=== PATIENT | male | born 1965 | race Two or more races ===

== ENCOUNTER 2021-06-28 14:33 | Inpatient (IN) | payer MEDICAID, OTHER ==
[~2021-06-28] VITALS: Ht 182.9 cm; Wt 136.4 kg
[2021-06-28] MEDS ORDERED: cefTRIAXone 1GM/50ML D5W 50 ML IV ONE (15:30)
[2021-06-28] MEDS ORDERED: AZITHROMYCIN 500MG/ 250ML 250 ML IV ONE (16:00)
[2021-06-28] MEDS ORDERED: DexAMETHasone SOD PHOS 10MG/1ML VIAL INJ IV ONE (16:00)
[2021-06-28 16:20] LABS: Red Cell Distribution Width 14.6 % (11.8-14.3); White Blood Cell 2.8 10^3/uL (4.4-10.8)
[2021-06-28 16:24] LABS: Basophils # (auto) 0 10 ^3/uL (0-0.2); Basophils % (auto) 0.2 % (0.0-2.0); Eosinophils # (auto) 0 10 ^3/uL (0-0.8); Eosinophils % (auto) 0.4 % (0.0-7.0); Hematocrit 45.8 % (41.0-53.0); Hemoglobin 15.5 g/dL (13.5-17.5); Lymphocytes # (auto) 0.4 10 ^3/uL (0.4-5.4); Lymphocytes % (auto) 14.5 % (10.0-50.0); Mean Corpuscular Hgb Conc. 33.9 g/dL (32.0-36.0); Mean Corpuscular Volume 97.3 fL (80.0-100.0); Monocytes # (auto) 0.4 10 ^3/uL (0-1.3); Monocytes % (auto) 15.2 % (0.0-12.0); Neutrophils # (auto) 1.9 10 ^3/uL (1.6-8.6); Neutrophils % (auto) 69.7 % (37.0-80.0); Nucleated Red Blood Cells % 0.2 %; Red Blood Cells 4.71 10^6/uL (4.5-5.90)
[2021-06-28 17:02] LABS: Calcium 8.1 mg/dL (8.5-10.1); Magnesium 2.6 mg/dL (1.6-2.6)
[2021-06-28 17:09] LABS: BUN/Creatinine Ratio 14.4; Total Protein 7.5 g/dL (6.4-8.2)
[2021-06-28] MEDS ORDERED: IOHEXOL 350 MG/ML 100ML IJ ONE (17:52)
[2021-06-28] MEDS ORDERED: REMDESIVIR PER PHARMACY 0 ML IV SCH (18:30)
[2021-06-28] MEDS ORDERED: ACETAMINOPHEN 500 MG TAB PO PRN (18:30)
[2021-06-28] MEDS ORDERED: MORPHINE SULFATE INJECTION 2 MG/ML SYRG IV PRN (18:30)
[2021-06-28] MEDS ORDERED: NITROGLYCERIN 0.4 MG SL TAB SL PRN (18:30)
[2021-06-28 20:30] VITALS: BP 126/82
[2021-06-28] MEDS ORDERED: REMDESIVIR 200 MG in NS 210ml LOADING DOSE ADULT IV ONE (21:00)
[2021-06-28 21:30] VITALS: BP 126/82
[2021-06-28] MEDS: BUDESONIDE (INHALATION) 180 MCG IH IN SCH (21:46)
[2021-06-28] MEDS ORDERED: ENOXAPARIN SOD 40 MG/0.4 ML SYRINGE SC SCH (22:00)
[2021-06-28] MEDS: FAMOTIDINE 20 MG TAB PO SCH (22:41)
[2021-06-29] MEDS: DOXYCYCLINE 100MG/250ML 250 ML IV SCH ×3 (01:03→21:46)
[2021-06-29] MEDS ORDERED: dilTIAZem 25 MG/5 ML VIAL IV ONE (02:00)
[2021-06-29] MEDS ORDERED: diphenhdrAMINE HCL 50 MG/1 ML VL IV ONE (02:00)
[2021-06-29 07:08] LABS: Urine Bacteria NONE SEEN /hpf (None Seen); Urine Blood Negative /uL (Negative); Urine Mucus FEW (None Seen); Urine Specific Gravity 1.048 (1.001-1.035); Urine WBC 1 /hpf (0 - 3)
[2021-06-29 07:20] LABS: Hemoglobin 15.5 g/dL (13.5-17.5)
[2021-06-29 07:21] LABS: Amphetamine Screen, Urine NEGATIVE (NEGATIVE); Barbiturate Scree,Urine NEGATIVE (NEGATIVE); Benzodiazephine Screen, Urine NEGATIVE (NEGATIVE); Cannabinoid Screen, Urine NEGATIVE (NEGATIVE); Cocaine Screen, Urine NEGATIVE (NEGATIVE); Opiate Scree,Urine NEGATIVE (NEGATIVE); Phencyclidine Screen, Urine NEGATIVE (NEGATIVE)
[2021-06-29 07:22] LABS: Hematocrit 45.2 % (41.0-53.0); Mean Corpuscular Hemoglobin 33.4 pg (28.0-32.0); Mean Corpuscular Hgb Conc. 34.2 g/dL (32.0-36.0); Mean Corpuscular Volume 97.5 fL (80.0-100.0); Red Blood Cells 4.64 10^6/uL (4.5-5.90); Red Cell Distribution Width 14.5 % (11.8-14.3)
[2021-06-29 07:25] LABS: White Blood Cell 1.8 10^3/uL (4.4-10.8)
[2021-06-29 07:26] LABS: Basophils % (manual) 0 (0.0-2.0); Blast Cells 0; Eosinophils % (manual) 0 (0-7); Metamyelocytes % 0; Myelocytes % 0; Promyelocytes % 0; Reactive Lymphocytes 0
[2021-06-29 08:33] LABS: Band Neutrophils % (manual) 5; Lymphocytes % (manual) 21 (10.0-50.0); Monocytes % (manual) 8 (0-12)
[2021-06-29] MEDS: FAMOTIDINE 20 MG TAB PO SCH ×2 (09:52→21:46)
[2021-06-29] MEDS: DexAMETHasone SOD PHOS 10MG/1ML VIAL INJ IV SCH (09:52)
[2021-06-29] MEDS: ASCORBIC ACID 1,000 MG TAB PO SCH (09:53)
[2021-06-29] MEDS: CHOLECALCIFEROL (VITD3) 2,000 UNIT CAP/TAB PO SCH (09:53)
[2021-06-29] MEDS: BUDESONIDE (INHALATION) 180 MCG IH IN SCH ×2 (10:00→22:00)
[2021-06-29] MEDS: ZINC SULFATE 220mg CAP or TAB PO SCH (10:03)
[2021-06-29] MEDS: IVERMECTIN 3 MG TAB PO SCH (10:03)
[2021-06-29 10:35] LABS: Potassium 4.3 mmol/L (3.5-5.1)
[2021-06-29 10:42] LABS: Albumin 2.9 g/dL (3.4-5.0); BUN/Creatinine Ratio 16.5; Bilirubin, Total 1.2 mg/dL (0.2-1.0); Calcium 7.9 mg/dL (8.5-10.1); Total Protein 6.8 g/dL (6.4-8.2)
[2021-06-29 13:00] VITALS: BP 134/77
[2021-06-29] MEDS ORDERED: REMDESIVIR 100mg 100 MG in SODIUM CHL 0.9% 230 ML IV SCH (15:00)
[2021-06-29 22:00] VITALS: BP 128/75
[2021-06-29] MEDS: ALBUTEROL SULF HFA 90MCG INH 200DOSE IN PRN (22:53)
[2021-06-30 05:00] VITALS: BP 122/73
[2021-06-30 05:56] LABS: Basophils # (auto) 0 10 ^3/uL (0-0.2); Eosinophils # (auto) 0 10 ^3/uL (0-0.8); Hemoglobin 15.5 g/dL (13.5-17.5); Lymphocytes # (auto) 0.3 10 ^3/uL (0.4-5.4); Mean Corpuscular Hemoglobin 33.5 pg (28.0-32.0)
[2021-06-30 05:59] LABS: Basophils % (auto) 0.4 % (0.0-2.0); Lymphocytes % (auto) 7.4 % (10.0-50.0); Mean Corpuscular Hgb Conc. 34.3 g/dL (32.0-36.0); Mean Corpuscular Volume 97.7 fL (80.0-100.0); Monocytes # (auto) 0.5 10 ^3/uL (0-1.3); Monocytes % (auto) 11.6 % (0.0-12.0); Neutrophils # (auto) 3.3 10 ^3/uL (1.6-8.6); Neutrophils % (auto) 80.6 % (37.0-80.0); Nucleated Red Blood Cells % 0.1 %; Red Blood Cells 4.61 10^6/uL (4.5-5.90); Red Cell Distribution Width 14.6 % (11.8-14.3)
[2021-06-30 06:11] LABS: INR 1.19 (0.9-1.15)
[2021-06-30] MEDS: BUDESONIDE (INHALATION) 180 MCG IH IN SCH (07:00)
[2021-06-30 09:00] VITALS: BP 107/61
[2021-06-30] MEDS: DOXYCYCLINE 100MG/250ML 250 ML IV SCH ×2 (09:44→21:06)
[2021-06-30] MEDS: ZINC SULFATE 220mg CAP or TAB PO SCH (09:44)
[2021-06-30] MEDS: DexAMETHasone SOD PHOS 10MG/1ML VIAL INJ IV SCH (09:44)
[2021-06-30] MEDS: FAMOTIDINE 20 MG TAB PO SCH ×2 (09:44→21:06)
[2021-06-30] MEDS: CHOLECALCIFEROL (VITD3) 2,000 UNIT CAP/TAB PO SCH (09:45)
[2021-06-30] MEDS: ASCORBIC ACID 1,000 MG TAB PO SCH (09:45)
[2021-06-30] MEDS: IVERMECTIN 3 MG TAB PO SCH (09:45)
[2021-06-30 13:00] VITALS: BP 136/78
[2021-06-30 17:00] VITALS: BP 114/67
[2021-06-30 22:00] VITALS: BP 124/76
[2021-07-01 05:00] VITALS: BP 125/77
[2021-07-01] MEDS: ALBUTEROL SULF HFA 90MCG INH 200DOSE IN PRN ×2 (06:02→21:35)
[2021-07-01] MEDS: BUDESONIDE (INHALATION) 180 MCG IH IN SCH ×2 (06:03→21:35)
[2021-07-01] MEDS ORDERED: PNEUMOCOCCAL VACC POLYS 25 MCG/0.5 ML VIAL IM ONE (07:45)
[2021-07-01] MEDS ORDERED: INFLUENZA QUAD 2021-2022 0.5 ML SYRG IM ONE (07:45)
[2021-07-01 09:00] VITALS: BP 109/73
[2021-07-01] MEDS: DexAMETHasone SOD PHOS 10MG/1ML VIAL INJ IV SCH (09:09)
[2021-07-01] MEDS: ZINC SULFATE 220mg CAP or TAB PO SCH (09:10)
[2021-07-01] MEDS: DOXYCYCLINE 100MG/250ML 250 ML IV SCH (09:10)
[2021-07-01] MEDS: CHOLECALCIFEROL (VITD3) 2,000 UNIT CAP/TAB PO SCH (09:11)
[2021-07-01] MEDS: FAMOTIDINE 20 MG TAB PO SCH ×2 (09:11→23:26)
[2021-07-01] MEDS: ASCORBIC ACID 1,000 MG TAB PO SCH (09:11)
[2021-07-01] MEDS: IVERMECTIN 3 MG TAB PO SCH (09:11)
[2021-07-01 10:17] LABS: Hepatitis B Surface Antibody Negative (Negative)
[2021-07-01 10:52] LABS: Hepatitis A Total Antibody Negative (Negative)
[2021-07-01] MEDS ORDERED: CHOL1TAB42 PO (11:05)
[2021-07-01] MEDS ORDERED: ALBU108A5 IN (11:05)
[2021-07-01] MEDS ORDERED: DEX4T PO (11:05)
[2021-07-01] MEDS ORDERED: FAMO20TA10 PO (11:05)
[2021-07-01] MEDS ORDERED: BUDE20SU (11:05)
[2021-07-01] MEDS ORDERED: AZIT500T66 PO (11:05)
[2021-07-01 13:00] VITALS: BP 149/86
[2021-07-01 13:13] LABS: Hepatitis C Antibody Negative (Negative)
[2021-07-01 17:00] VITALS: BP 121/76
[2021-07-01 22:35] VITALS: BP 116/71
[2021-07-02] MEDS: DOXYCYCLINE 100MG/250ML 250 ML IV SCH ×2 (00:15→10:32)
[2021-07-02 05:02] VITALS: BP 124/53
[2021-07-02] MEDS: ALBUTEROL SULF HFA 90MCG INH 200DOSE IN PRN (05:47)
[2021-07-02] MEDS: BUDESONIDE (INHALATION) 180 MCG IH IN SCH (05:47)
[2021-07-02 07:08] LABS: Basophils # (auto) 0 10 ^3/uL (0-0.2); Eosinophils # (auto) 0 10 ^3/uL (0-0.8); Eosinophils % (auto) 0.2 % (0.0-7.0); Hematocrit 41.8 % (41.0-53.0); Hemoglobin 14.3 g/dL (13.5-17.5); Lymphocytes # (auto) 0.4 10 ^3/uL (0.4-5.4); Mean Corpuscular Hemoglobin 33.6 pg (28.0-32.0); Mean Corpuscular Hgb Conc. 34.2 g/dL (32.0-36.0); Mean Corpuscular Volume 98.3 fL (80.0-100.0); Monocytes # (auto) 0.3 10 ^3/uL (0-1.3); Monocytes % (auto) 9.4 % (0.0-12.0); Neutrophils # (auto) 2.9 10 ^3/uL (1.6-8.6); Neutrophils % (auto) 80.4 % (37.0-80.0); Nucleated Red Blood Cells % 0.2 %; Red Blood Cells 4.26 10^6/uL (4.5-5.90); Red Cell Distribution Width 14.3 % (11.8-14.3); White Blood Cell 3.6 10^3/uL (4.4-10.8)
[2021-07-02 07:29] LABS: Potassium 4.3 mmol/L (3.5-5.1)
[2021-07-02 07:36] LABS: Albumin 2.5 g/dL (3.4-5.0); BUN/Creatinine Ratio 26.7; Bilirubin, Total 0.8 mg/dL (0.2-1.0); Calcium 7.7 mg/dL (8.5-10.1)
[2021-07-02 09:00] VITALS: BP 120/63
[2021-07-02] MEDS: DexAMETHasone SOD PHOS 10MG/1ML VIAL INJ IV SCH (10:32)
[2021-07-02] MEDS: ZINC SULFATE 220mg CAP or TAB PO SCH (10:32)
[2021-07-02] MEDS: IVERMECTIN 3 MG TAB PO SCH (10:33)
[2021-07-02] MEDS: ASCORBIC ACID 1,000 MG TAB PO SCH (10:33)
[2021-07-02] MEDS: CHOLECALCIFEROL (VITD3) 2,000 UNIT CAP/TAB PO SCH (10:33)
[2021-07-02] MEDS: FAMOTIDINE 20 MG TAB PO SCH (10:33)
[2021-07-02 12:26] VITALS: BP 120/63
[2021-07-02 13:06] VITALS: BP 109/59
== END 2021-07-02 13:50 | disposition home or self-care (01) | DRG 137 ==
LOC: ER 14:33 → TELE 18:24 → TELE-EAST 20:55
PROVIDERS: ADMIT Hospitalist; ATTEND Hospitalist
PROC: XW033E5 Introduction of Remdesivir Anti-infective into Peripheral Vein, Percutaneous Approach, New Technology Group 5 (ICD-10-PCS; principal; 2021-06-28)
DX: U07.1 COVID-19 (principal); J96.01 Acute respiratory failure with hypoxia; J12.82 Pneumonia due to coronavirus disease 2019; D69.6 Thrombocytopenia, unspecified; R65.10 Systemic inflammatory response syndrome (SIRS) of non-infectious origin without acute organ dysfunction; I11.9 Hypertensive heart disease without heart failure; K74.60 Unspecified cirrhosis of liver; J45.909 Unspecified asthma, uncomplicated; J98.11 Atelectasis; E66.9 Obesity, unspecified; E11.9 Type 2 diabetes mellitus without complications; R00.0 Tachycardia, unspecified; Z53.29 Procedure and treatment not carried out because of patient's decision for other reasons; Z68.41 Body mass index [BMI] 40.0-44.9, adult; Z82.49 Family history of ischemic heart disease and other diseases of the circulatory system; Z79.4 Long term (current) use of insulin; Z88.0 Allergy status to penicillin; Z23 Encounter for immunization
CPT/HCPCS: 36415; 36600; 71045; 71275; 80053; 80307; 81001; 82105; 82306; 82728; 82805; 83036; 83615; 83735; 83880; 84443; 84484; 85007; 85025; 85027; 85379; 85610; 86141; 86704; 86706; 86708; 86803; 87340; 87426; 87804; 93005; 94640; 96365; 96368; 96375; 99291; G0378; J0696; J1100; J3490

== ENCOUNTER 2021-07-21 12:24 | Inpatient (IN) | payer MEDICAID ==
[~2021-07-21] VITALS: Ht 182.9 cm; Wt 135.1 kg
[~2021-07-21 12:24] MED LIST: ALBU108A5 IN; AZIT500T66 PO; BUDE20SU; CHOL1TAB42 PO; DEX4T PO; FAMO20TA10 PO
[2021-07-21 13:46] LABS: Basophils # (auto) 0 10 ^3/uL (0-0.2); Eosinophils # (auto) 0.1 10 ^3/uL (0-0.8); Eosinophils % (auto) 2.3 % (0.0-7.0); Hemoglobin 14.2 g/dL (13.5-17.5); Lymphocytes # (auto) 0.5 10 ^3/uL (0.4-5.4); Lymphocytes % (auto) 11.5 % (10.0-50.0); Mean Corpuscular Hemoglobin 33.5 pg (28.0-32.0); Mean Corpuscular Hgb Conc. 33.9 g/dL (32.0-36.0); Mean Corpuscular Volume 98.7 fL (80.0-100.0); Monocytes # (auto) 0.5 10 ^3/uL (0-1.3); Neutrophils # (auto) 3.3 10 ^3/uL (1.6-8.6); Neutrophils % (auto) 74.2 % (37.0-80.0); Nucleated Red Blood Cells % 0.2 %; Red Blood Cells 4.25 10^6/uL (4.5-5.90); Red Cell Distribution Width 14.7 % (11.8-14.3); White Blood Cell 4.4 10^3/uL (4.4-10.8)
[2021-07-21 14:38] LABS: Potassium 4.5 mmol/L (3.5-5.1)
[2021-07-21 14:50] LABS: Albumin 2.5 g/dL (3.4-5.0); BUN/Creatinine Ratio 9.1; Bilirubin, Total 2.3 mg/dL (0.2-1.0); Calcium 8.3 mg/dL (8.5-10.1); Total Protein 7.5 g/dL (6.4-8.2)
[2021-07-21 15:16] LABS: Urine Bacteria FEW /hpf (None Seen); Urine Blood Negative /uL (Negative); Urine Hyaline Cast FEW /lpf (0 - 2); Urine Mucus FEW (None Seen); Urine Specific Gravity 1.027 (1.001-1.035); Urine WBC 5 /hpf (0 - 3)
[2021-07-21] MEDS ORDERED: MORPHINE SULFATE INJECTION 2 MG/ML SYRG IV PRN (17:15)
[2021-07-21] MEDS ORDERED: ASCORBIC ACID 500 MG TAB PO ONE (17:15)
[2021-07-21] MEDS ORDERED: ZINC SULFATE 220mg CAP or TAB PO ONE (17:15)
[2021-07-21] MEDS ORDERED: CHOLECALCIFEROL (VITD3) 2,000 UNIT CAP/TAB PO ONE (17:15)
[2021-07-21] MEDS ORDERED: hydrOXYchloroQUINE SULFATE 200 MG TAB PO ONE (17:15)
[2021-07-21] MEDS ORDERED: ALBUTEROL SULF HFA 90MCG INH 200DOSE IN PRN (17:15)
[2021-07-21] MEDS ORDERED: AZITHROMYCIN 500MG/ 250ML 250 ML IV ONE (17:15)
[2021-07-21] MEDS ORDERED: DexAMETHasone SOD PHOS 10MG/1ML VIAL INJ IV ONE (17:15)
[2021-07-21] MEDS ORDERED: ACETAMINOPHEN 500 MG TAB PO PRN (17:15)
[2021-07-21] MEDS ORDERED: NITROGLYCERIN 0.4 MG SL TAB SL PRN (17:15)
[2021-07-21] MEDS ORDERED: cefTRIAXone 1GM/50ML D5W 50 ML IV ONE (17:15)
[2021-07-21] MEDS ORDERED: DEXTROSE (50%) 50ML SYRG IV PRN (17:30)
[2021-07-21] MEDS: DOXYCYCLINE 100MG/250ML 250 ML IV SCH (20:10)
[2021-07-21] MEDS ORDERED: IOHEXOL 350 MG/ML 100ML IJ ONE (20:11)
[2021-07-21] MEDS: BUDESONIDE (INHALATION) 180 MCG IH IN SCH (22:00)
[2021-07-21] MEDS: InsuLIN REG 1unit/0.01ml Soln (100units/ml) SC SCH (22:00)
[2021-07-21] MEDS: ACCU-CHEK COMFORT CURVE STRIP VI SCH (23:59)
[2021-07-22] MEDS: DOXYCYCLINE 100MG/250ML 250 ML IV SCH ×2 (06:30→17:14)
[2021-07-22 07:11] LABS: Basophils # (auto) 0.1 10 ^3/uL (0-0.2); Basophils % (auto) 1.6 % (0.0-2.0); Eosinophils # (auto) 0 10 ^3/uL (0-0.8); Eosinophils % (auto) 0.1 % (0.0-7.0); Hematocrit 43.2 % (41.0-53.0); Hemoglobin 14.5 g/dL (13.5-17.5); Lymphocytes # (auto) 0.5 10 ^3/uL (0.4-5.4); Lymphocytes % (auto) 12.3 % (10.0-50.0); Mean Corpuscular Hemoglobin 33.5 pg (28.0-32.0); Mean Corpuscular Hgb Conc. 33.5 g/dL (32.0-36.0); Mean Corpuscular Volume 99.9 fL (80.0-100.0); Monocytes # (auto) 0.4 10 ^3/uL (0-1.3); Monocytes % (auto) 9.6 % (0.0-12.0); Neutrophils # (auto) 3.2 10 ^3/uL (1.6-8.6); Neutrophils % (auto) 76.4 % (37.0-80.0); Nucleated Red Blood Cells % 0.1 %; Red Blood Cells 4.32 10^6/uL (4.5-5.90); White Blood Cell 4.2 10^3/uL (4.4-10.8)
[2021-07-22 07:17] LABS: Albumin 2.3 g/dL (3.4-5.0); BUN/Creatinine Ratio 14.6; Calcium 8.8 mg/dL (8.5-10.1); Potassium 4.5 mmol/L (3.5-5.1)
[2021-07-22 07:20] LABS: Bilirubin, Total 1.2 mg/dL (0.2-1.0); Total Protein 7.4 g/dL (6.4-8.2)
[2021-07-22] MEDS: ACCU-CHEK COMFORT CURVE STRIP VI SCH ×4 (07:28→21:21)
[2021-07-22] MEDS: InsuLIN REG 1unit/0.01ml Soln (100units/ml) SC SCH ×4 (07:34→21:29)
[2021-07-22] MEDS ORDERED: AMIODARONE HCL 150 MG in D5W 5% 100 ML IV ONE (09:45)
[2021-07-22] MEDS ORDERED: AMIODARONE 450mg/250ml AE 250 ML IV SCH ×2 (09:45→15:45)
[2021-07-22] MEDS ORDERED: ENOXAPARIN SOD 40 MG/0.4 ML SYRINGE SC SCH (10:00)
[2021-07-22] MEDS: BUDESONIDE (INHALATION) 180 MCG IH IN SCH (10:00)
[2021-07-22] MEDS: ZINC SULFATE 220mg CAP or TAB PO SCH (10:06)
[2021-07-22] MEDS: CHOLECALCIFEROL (VITD3) 2,000 UNIT CAP/TAB PO SCH (10:07)
[2021-07-22] MEDS: ASCORBIC ACID 1,000 MG TAB PO SCH (10:07)
[2021-07-22] MEDS: ENOXAPARIN SOD 100 MG/1 ML SYRINGE SC SCH ×2 (10:12→21:26)
[2021-07-22] MEDS: DexAMETHasone SOD PHOS 10MG/1ML VIAL INJ IV SCH (10:12)
[2021-07-22 18:14] LABS: Amphetamine Screen, Urine NEGATIVE (NEGATIVE); Barbiturate Scree,Urine NEGATIVE (NEGATIVE); Benzodiazephine Screen, Urine NEGATIVE (NEGATIVE); Cannabinoid Screen, Urine NEGATIVE (NEGATIVE); Cocaine Screen, Urine NEGATIVE (NEGATIVE); Opiate Scree,Urine NEGATIVE (NEGATIVE); Phencyclidine Screen, Urine NEGATIVE (NEGATIVE)
[2021-07-22] MEDS: METOPROLOL TARTRATE 50 MG TAB PO SCH (20:38)
[2021-07-22 20:44] VITALS: BP 109/69
[2021-07-23] MEDS ORDERED: ASCO500T11 PO (00:42)
[2021-07-23] MEDS: DOXYCYCLINE 100MG/250ML 250 ML IV SCH ×2 (04:45→17:54)
[2021-07-23] MEDS: InsuLIN REG 1unit/0.01ml Soln (100units/ml) SC SCH ×4 (06:19→22:44)
[2021-07-23] MEDS: ACCU-CHEK COMFORT CURVE STRIP VI SCH ×4 (06:21→22:25)
[2021-07-23 06:42] LABS: Basophils # (auto) 0 10 ^3/uL (0-0.2); Basophils % (auto) 0.1 % (0.0-2.0); Eosinophils # (auto) 0 10 ^3/uL (0-0.8); Eosinophils % (auto) 0.1 % (0.0-7.0); Hematocrit 41.2 % (41.0-53.0); Hemoglobin 13.6 g/dL (13.5-17.5); Lymphocytes # (auto) 0.8 10 ^3/uL (0.4-5.4); Lymphocytes % (auto) 11.2 % (10.0-50.0); Mean Corpuscular Hemoglobin 33.1 pg (28.0-32.0); Mean Corpuscular Hgb Conc. 33.1 g/dL (32.0-36.0); Monocytes # (auto) 0.6 10 ^3/uL (0-1.3); Monocytes % (auto) 9.2 % (0.0-12.0); Neutrophils # (auto) 5.3 10 ^3/uL (1.6-8.6); Neutrophils % (auto) 79.4 % (37.0-80.0); Nucleated Red Blood Cells % 0.2 %; Red Blood Cells 4.12 10^6/uL (4.5-5.90); Red Cell Distribution Width 15.1 % (11.8-14.3); White Blood Cell 6.7 10^3/uL (4.4-10.8)
[2021-07-23 06:55] LABS: INR 1.25 (0.9-1.15); Partial Thromboplastin Time 40.3 sec (23.6-33.0)
[2021-07-23 08:41] VITALS: BP 125/69
[2021-07-23] MEDS: DexAMETHasone SOD PHOS 10MG/1ML VIAL INJ IV SCH (09:31)
[2021-07-23] MEDS: ZINC SULFATE 220mg CAP or TAB PO SCH (09:31)
[2021-07-23] MEDS: CHOLECALCIFEROL (VITD3) 2,000 UNIT CAP/TAB PO SCH (09:32)
[2021-07-23] MEDS: ASCORBIC ACID 1,000 MG TAB PO SCH (09:32)
[2021-07-23] MEDS: METOPROLOL TARTRATE 50 MG TAB PO SCH ×2 (09:32→22:00)
[2021-07-23] MEDS: ENOXAPARIN SOD 100 MG/1 ML SYRINGE SC SCH ×2 (09:32→22:25)
[2021-07-23 11:46] VITALS: BP 94/65
[2021-07-23] MEDS ORDERED: DIGOXIN (250MCG/ML) 2 ML AMPULE IV ONE (12:45)
[2021-07-23] MEDS ORDERED: AMIODARONE HCL 150 MG in D5W 5% 100 ML IV ONE (13:00)
[2021-07-23] MEDS ORDERED: AMIODARONE 450mg/250ml AE 250 ML IV SCH ×3 (13:15→23:00)
[2021-07-23 16:59] VITALS: BP 150/83
[2021-07-23 21:54] VITALS: BP 112/58
[2021-07-23] MEDS: AMIODARONE 450mg/250ml AE 250 ML IV SCH (23:25)
[2021-07-24 04:29] VITALS: BP 91/73
[2021-07-24] MEDS: DOXYCYCLINE 100MG/250ML 250 ML IV SCH (05:10)
[2021-07-24] MEDS: AMIODARONE 450mg/250ml AE 250 ML IV SCH ×3 (06:41→21:58)
[2021-07-24] MEDS: InsuLIN REG 1unit/0.01ml Soln (100units/ml) SC SCH ×4 (06:45→22:00)
[2021-07-24] MEDS: ACCU-CHEK COMFORT CURVE STRIP VI SCH ×4 (06:45→23:12)
[2021-07-24 08:00] VITALS: BP 112/58
[2021-07-24 09:00] VITALS: BP 112/76
[2021-07-24] MEDS: CHOLECALCIFEROL (VITD3) 2,000 UNIT CAP/TAB PO SCH (10:00)
[2021-07-24] MEDS: ASCORBIC ACID 1,000 MG TAB PO SCH (10:00)
[2021-07-24] MEDS: DexAMETHasone SOD PHOS 10MG/1ML VIAL INJ IV SCH (10:53)
[2021-07-24] MEDS: ZINC SULFATE 220mg CAP or TAB PO SCH (10:54)
[2021-07-24] MEDS: METOPROLOL TARTRATE 50 MG TAB PO SCH ×2 (10:54→21:58)
[2021-07-24] MEDS: ENOXAPARIN SOD 100 MG/1 ML SYRINGE SC SCH ×2 (10:55→21:59)
[2021-07-24 13:18] VITALS: BP 107/72
[2021-07-24 17:00] VITALS: BP 143/78
[2021-07-24 21:58] VITALS: BP 118/68
[2021-07-24] MEDS: DOXYCYCLINE 100 MG TAB/CAP PO SCH (21:59)
[2021-07-25 05:04] VITALS: BP 113/70
[2021-07-25] MEDS: AMIODARONE 450mg/250ml AE 250 ML IV SCH (05:18)
[2021-07-25] MEDS: ACCU-CHEK COMFORT CURVE STRIP VI SCH ×4 (06:38→22:33)
[2021-07-25] MEDS: InsuLIN REG 1unit/0.01ml Soln (100units/ml) SC SCH ×4 (06:42→22:34)
[2021-07-25 07:30] LABS: Basophils # (auto) 0 10 ^3/uL (0-0.2); Basophils % (auto) 0.1 % (0.0-2.0); Eosinophils # (auto) 0 10 ^3/uL (0-0.8); Eosinophils % (auto) 0.1 % (0.0-7.0); Hematocrit 39.9 % (41.0-53.0); Hemoglobin 13.2 g/dL (13.5-17.5); Lymphocytes # (auto) 0.5 10 ^3/uL (0.4-5.4); Lymphocytes % (auto) 9.9 % (10.0-50.0); Mean Corpuscular Hemoglobin 32.9 pg (28.0-32.0); Mean Corpuscular Hgb Conc. 33.2 g/dL (32.0-36.0); Mean Corpuscular Volume 99.1 fL (80.0-100.0); Monocytes # (auto) 0.4 10 ^3/uL (0-1.3); Monocytes % (auto) 8.3 % (0.0-12.0); Neutrophils # (auto) 3.8 10 ^3/uL (1.6-8.6); Neutrophils % (auto) 81.6 % (37.0-80.0); Nucleated Red Blood Cells % 0.1 %; Red Blood Cells 4.02 10^6/uL (4.5-5.90); Red Cell Distribution Width 14.5 % (11.8-14.3); White Blood Cell 4.7 10^3/uL (4.4-10.8)
[2021-07-25 07:48] LABS: Potassium 4.3 mmol/L (3.5-5.1)
[2021-07-25 07:56] LABS: Albumin 2.3 g/dL (3.4-5.0); BUN/Creatinine Ratio 28.4; Bilirubin, Total 0.8 mg/dL (0.2-1.0); Calcium 8.3 mg/dL (8.5-10.1); Total Protein 6.5 g/dL (6.4-8.2)
[2021-07-25 09:00] VITALS: BP 105/70
[2021-07-25] MEDS: METOPROLOL TARTRATE 50 MG TAB PO SCH ×2 (10:00→22:32)
[2021-07-25] MEDS: DOXYCYCLINE 100 MG TAB/CAP PO SCH ×2 (10:38→22:32)
[2021-07-25] MEDS: CHOLECALCIFEROL (VITD3) 2,000 UNIT CAP/TAB PO SCH (10:39)
[2021-07-25] MEDS: ASCORBIC ACID 1,000 MG TAB PO SCH (10:39)
[2021-07-25] MEDS: ENOXAPARIN SOD 100 MG/1 ML SYRINGE SC SCH ×2 (10:40→22:33)
[2021-07-25] MEDS: ZINC SULFATE 220mg CAP or TAB PO SCH (10:40)
[2021-07-25] MEDS: DexAMETHasone SOD PHOS 10MG/1ML VIAL INJ IV SCH (10:40)
[2021-07-25 13:00] VITALS: BP 106/68
[2021-07-25 17:00] VITALS: BP 146/82
[2021-07-25] MEDS: AMIODARONE HCL 200 MG TAB PO SCH (22:32)
[2021-07-26 05:04] VITALS: BP 120/73
[2021-07-26] MEDS: ACCU-CHEK COMFORT CURVE STRIP VI SCH ×3 (06:30→16:37)
[2021-07-26] MEDS: InsuLIN REG 1unit/0.01ml Soln (100units/ml) SC SCH ×3 (06:31→16:36)
[2021-07-26 09:00] VITALS: BP 124/73
[2021-07-26] MEDS: DexAMETHasone SOD PHOS 10MG/1ML VIAL INJ IV SCH (09:12)
[2021-07-26] MEDS: AMIODARONE HCL 200 MG TAB PO SCH (09:14)
[2021-07-26] MEDS: DOXYCYCLINE 100 MG TAB/CAP PO SCH (09:14)
[2021-07-26] MEDS: METOPROLOL TARTRATE 50 MG TAB PO SCH ×2 (09:15→10:15)
[2021-07-26] MEDS: ENOXAPARIN SOD 100 MG/1 ML SYRINGE SC SCH (09:15)
[2021-07-26 13:00] VITALS: BP 113/67
[2021-07-26] MEDS ORDERED: MET50T PO (15:32)
[2021-07-26] MEDS ORDERED: APIX5TAB PO (15:32)
[2021-07-26] MEDS ORDERED: AMIO200T4 PO (15:32)
[2021-07-26 17:00] VITALS: BP 142/89
== END 2021-07-26 18:00 | disposition home or self-care (01) | DRG 139 ==
LOC: ER 12:24 → TELE 17:12 → TELE-WESTW 07-22 20:11
PROVIDERS: ADMIT Hospitalist; ATTEND Hospitalist
DX: J18.9 Pneumonia, unspecified organism (principal); J96.21 Acute and chronic respiratory failure with hypoxia; I47.1 Supraventricular tachycardia; J44.0 Chronic obstructive pulmonary disease with (acute) lower respiratory infection; I48.92 Unspecified atrial flutter; I11.9 Hypertensive heart disease without heart failure; R17 Unspecified jaundice; I48.91 Unspecified atrial fibrillation; Z20.822 Contact with and (suspected) exposure to COVID-19; L40.9 Psoriasis, unspecified; E11.65 Type 2 diabetes mellitus with hyperglycemia; E66.9 Obesity, unspecified; F41.9 Anxiety disorder, unspecified; I25.10 Atherosclerotic heart disease of native coronary artery without angina pectoris; J98.11 Atelectasis; Z79.01 Long term (current) use of anticoagulants; Z82.49 Family history of ischemic heart disease and other diseases of the circulatory system; Z68.39 Body mass index [BMI] 39.0-39.9, adult; Z86.16 Personal history of COVID-19; Z88.0 Allergy status to penicillin
CPT/HCPCS: 36415; 71045; 71275; 80053; 80307; 81001; 82728; 82962; 83605; 83615; 83735; 83880; 84484; 85025; 85379; 85610; 85730; 86141; 87040; 87081; 87426; 93005; 93306; 93970; 96365; 96375; G0378; J0696; J1100; J1815; J3490; J7060

== ENCOUNTER 2021-09-08 14:35 | Emergency (ER) | payer MEDICAID ==
[~2021-09-08] VITALS: Ht 182.9 cm; Wt 127.0 kg
[~2021-09-08 14:35] MED LIST changes: +AMIO200T4 PO; +APIX5TAB PO; -AZIT500T66 PO; -CHOL1TAB42 PO; -DEX4T PO; -FAMO20TA10 PO; +MET50T PO
[2021-09-08 15:11] VITALS: BP 156/86
== END 2021-09-08 16:31 | disposition home or self-care (01) ==
LOC: ER 14:35
DX: S61.216A Laceration without foreign body of right little finger without damage to nail, initial encounter (principal); J45.909 Unspecified asthma, uncomplicated; E11.9 Type 2 diabetes mellitus without complications; I10 Essential (primary) hypertension; Z88.0 Allergy status to penicillin; W26.0XXA Contact with knife, initial encounter; Y93.89 Activity, other specified; Y92.89 Other specified places as the place of occurrence of the external cause; Y99.8 Other external cause status
CPT/HCPCS: 12001; 99282; J2001

== ENCOUNTER 2021-09-14 13:00 | Emergency (ER) | payer MEDICAID ==
[~2021-09-14] VITALS: Ht 182.9 cm; Wt 131.5 kg
[2021-09-14] MEDS ORDERED: SULF800T7 PO (13:56)
[2021-09-14 14:02] VITALS: BP 123/83
== END 2021-09-14 14:07 | disposition home or self-care (01) ==
LOC: ER 13:00
DX: S61.216D Laceration without foreign body of right little finger without damage to nail, subsequent encounter (principal); I10 Essential (primary) hypertension; E11.9 Type 2 diabetes mellitus without complications; J45.909 Unspecified asthma, uncomplicated; Z79.899 Other long term (current) drug therapy; Z88.0 Allergy status to penicillin; W26.0XXD Contact with knife, subsequent encounter

== ENCOUNTER 2022-05-17 09:41 | Inpatient (IN) | payer MEDICAID ==
[~2022-05-17] VITALS: Ht 182.9 cm; Wt 139.6 kg
[~2022-05-17 09:41] MED LIST changes: +SULF800T7 PO
[2022-05-17 10:44] LABS: Basophils # (auto) 0 10 ^3/uL (0-0.2); Basophils % (auto) 0.4 % (0.0-2.0); Eosinophils # (auto) 0.2 10 ^3/uL (0-0.8); Lymphocytes # (auto) 0.3 10 ^3/uL (0.4-5.4); Lymphocytes % (auto) 8.2 % (10.0-50.0); Monocytes # (auto) 0.4 10 ^3/uL (0-1.3); Neutrophils # (auto) 3.1 10 ^3/uL (1.6-8.6); Red Blood Cells 4.64 10^6/uL (4.5-5.90)
[2022-05-17 10:46] LABS: Eosinophils % (auto) 5.7 % (0.0-7.0); Hematocrit 43.9 % (41.0-53.0); Mean Corpuscular Hemoglobin 32.2 pg (28.0-32.0); Mean Corpuscular Hgb Conc. 34.1 g/dL (32.0-36.0); Mean Corpuscular Volume 94.6 fL (80.0-100.0); Monocytes % (auto) 10.4 % (0.0-12.0); Neutrophils % (auto) 75.3 % (37.0-80.0); Nucleated Red Blood Cells % 0.1 %; Red Cell Distribution Width 13.4 % (11.8-14.3); White Blood Cell 4.1 10^3/uL (4.4-10.8)
[2022-05-17 11:12] LABS: Albumin 3.1 g/dL (3.4-5.0); BUN/Creatinine Ratio 10.3; Bilirubin, Total 1.3 mg/dL (0.2-1.0); Potassium 4.1 mmol/L (3.5-5.1); Total Protein 6.9 g/dL (6.4-8.2)
[2022-05-17] MEDS ORDERED: IOHEXOL 350 MG/ML 100ML IJ ONE (11:57)
[2022-05-17] MEDS ORDERED: NITROGLYCERIN 0.4 MG SL TAB SL PRN (13:45)
[2022-05-17] MEDS ORDERED: REMDESIVIR PER PHARMACY 0 ML IV SCH (13:45)
[2022-05-17] MEDS ORDERED: ACETAMINOPHEN 325 MG TAB PO PRN (13:45)
[2022-05-17] MEDS ORDERED: MORPHINE SULFATE INJ 2 MG/ml SYRG IV PRN ×2 (13:45)
[2022-05-17] MEDS ORDERED: DEXTROSE (50%) 50ML SYRG IV PRN (13:45)
[2022-05-17] MEDS ORDERED: hydrALAZINE HCL 20 MG/ML VL IV PRN (14:00)
[2022-05-17] MEDS ORDERED: cefTRIAXone 1GM/50ML D5W 50 ML IV ONE (14:15)
[2022-05-17 15:47] LABS: Basophils # (auto) 0 10 ^3/uL (0-0.2); Basophils % (auto) 0.4 % (0.0-2.0); Eosinophils # (auto) 0.2 10 ^3/uL (0-0.8); Lymphocytes # (auto) 0.4 10 ^3/uL (0.4-5.4); Red Cell Distribution Width 13.3 % (11.8-14.3); White Blood Cell 4.2 10^3/uL (4.4-10.8)
[2022-05-17 15:49] LABS: Eosinophils % (auto) 5.4 % (0.0-7.0); Hematocrit 45.2 % (41.0-53.0); Hemoglobin 15.1 g/dL (13.5-17.5); Lymphocytes % (auto) 9.6 % (10.0-50.0); Mean Corpuscular Hemoglobin 32.1 pg (28.0-32.0); Mean Corpuscular Hgb Conc. 33.4 g/dL (32.0-36.0); Monocytes # (auto) 0.6 10 ^3/uL (0-1.3); Monocytes % (auto) 13.2 % (0.0-12.0); Neutrophils % (auto) 71.4 % (37.0-80.0); Nucleated Red Blood Cells % 0.1 %; Red Blood Cells 4.71 10^6/uL (4.5-5.90)
[2022-05-17 16:04] LABS: Albumin 3.3 g/dL (3.4-5.0); BUN/Creatinine Ratio 12.7; Calcium 8.3 mg/dL (8.5-10.1); Magnesium 2.1 mg/dL (1.6-2.6); Potassium 4.4 mmol/L (3.5-5.1)
[2022-05-17 16:07] LABS: Bilirubin, Total 1.2 mg/dL (0.2-1.0); Total Protein 7.4 g/dL (6.4-8.2)
[2022-05-17 16:10] LABS: Cholesterol 148 mg/dL (< 200); HDL Cholesterol 38 mg/dL (40-59); LDL Cholesterol 100 mg/dL (< 100); Triglycerides 144 mg/dL (< 150)
[2022-05-17 16:11] LABS: INR 1.11 (0.9-1.15)
[2022-05-17] MEDS: DexAMETHasone SOD PHOS 10MG/1ML VIAL INJ IV SCH (16:11)
[2022-05-17] MEDS: DOXYCYCLINE 100MG/250ML 250 ML IV SCH (16:11)
[2022-05-17 16:27] LABS: Thyroid Stimulating Hormone 2.01 uIU/mL (0.358-3.74)
[2022-05-17 16:48] LABS: CRP High Sensitivity 5.79 mg/dL (< 0.3)
[2022-05-17] MEDS: ACCU-CHEK COMFORT CURVE STRIP VI SCH ×2 (17:14→22:58)
[2022-05-17] MEDS: InsuLIN REG 1unit/0.01ml Soln (100units/ml) SC SCH ×2 (17:29→22:58)
[2022-05-17 17:48] LABS: Urine Bacteria NONE SEEN /hpf (None Seen); Urine Blood Negative /uL (Negative); Urine Mucus FEW (None Seen); Urine WBC 1 /hpf (0 - 3)
[2022-05-17 18:02] LABS: Urine Specific Gravity > 1.050 (1.001-1.035)
[2022-05-17 20:36] VITALS: BP 131/75
[2022-05-17] MEDS: REMDESIVIR 200 MG in NS 210ml LOADING DOSE ADULT IV ONE ×2 (21:16→23:00)
[2022-05-17] MEDS ORDERED: ENOXAPARIN SOD 40 MG/0.4 ML SYRINGE SC SCH (22:00)
[2022-05-17] MEDS: ALBUTEROL SULF HFA 90MCG INH 200DOSE IN PRN (22:32)
[2022-05-17] MEDS: BUDESONIDE (INHALATION) 180 MCG IH IN SCH (22:32)
[2022-05-17 22:49] VITALS: BP 134/81
[2022-05-18] VITALS (7 sets, daily range): BP systolic 109–134; BP diastolic 63–85
[2022-05-18] MEDS: DOXYCYCLINE 100MG/250ML 250 ML IV SCH (03:00)
[2022-05-18] MEDS: InsuLIN REG 1unit/0.01ml Soln (100units/ml) SC SCH ×4 (06:45→22:35)
[2022-05-18 06:49] LABS: Basophils # (auto) 0 10 ^3/uL (0-0.2); Basophils % (auto) 0.1 % (0.0-2.0); Eosinophils # (auto) 0 10 ^3/uL (0-0.8); Lymphocytes # (auto) 0.3 10 ^3/uL (0.4-5.4); Monocytes # (auto) 0.2 10 ^3/uL (0-1.3); Neutrophils # (auto) 2.4 10 ^3/uL (1.6-8.6)
[2022-05-18 06:51] LABS: Eosinophils % (auto) 0.3 % (0.0-7.0); Hematocrit 41.3 % (41.0-53.0); Hemoglobin 14.4 g/dL (13.5-17.5); Lymphocytes % (auto) 11.6 % (10.0-50.0); Mean Corpuscular Hgb Conc. 34.8 g/dL (32.0-36.0); Mean Corpuscular Volume 94.9 fL (80.0-100.0); Red Blood Cells 4.36 10^6/uL (4.5-5.90); Red Cell Distribution Width 13.4 % (11.8-14.3)
[2022-05-18] MEDS: ACCU-CHEK COMFORT CURVE STRIP VI SCH ×4 (07:00→22:00)
[2022-05-18 07:22] LABS: Potassium 4.3 mmol/L (3.5-5.1)
[2022-05-18 07:30] LABS: Calcium 8.5 mg/dL (8.5-10.1)
[2022-05-18 07:31] LABS: Total Protein 7.3 g/dL (6.4-8.2)
[2022-05-18] MEDS ORDERED: cefTRIAXone 1GM/50ML D5W 50 ML IV SCH (09:00)
[2022-05-18] MEDS: DexAMETHasone SOD PHOS 10MG/1ML VIAL INJ IV SCH (09:58)
[2022-05-18] MEDS ORDERED: ENOXAPARIN SOD 40 MG/0.4 ML SYRINGE SC SCH (10:00)
[2022-05-18] MEDS: ALBUTEROL SULF HFA 90MCG INH 200DOSE IN PRN ×2 (10:36→19:59)
[2022-05-18] MEDS: BUDESONIDE (INHALATION) 180 MCG IH IN SCH ×2 (10:36→19:05)
[2022-05-18] MEDS: REMDESIVIR 100mg 100 MG in SODIUM CHL 0.9% 230 ML IV SCH (15:05)
[2022-05-18] MEDS ORDERED: DOXYCYCLINE 100MG/250ML 250 ML IV SCH (17:00)
[2022-05-19 05:00] VITALS: BP 127/80
[2022-05-19] MEDS: ACCU-CHEK COMFORT CURVE STRIP VI SCH ×4 (06:25→22:08)
[2022-05-19] MEDS: InsuLIN REG 1unit/0.01ml Soln (100units/ml) SC SCH ×4 (06:25→22:06)
[2022-05-19 09:04] VITALS: BP 139/80
[2022-05-19] MEDS: DexAMETHasone SOD PHOS 10MG/1ML VIAL INJ IV SCH (09:57)
[2022-05-19] MEDS: BUDESONIDE (INHALATION) 180 MCG IH IN SCH ×2 (10:24→22:54)
[2022-05-19 13:00] VITALS: BP 127/71
[2022-05-19] MEDS: REMDESIVIR 100mg 100 MG in SODIUM CHL 0.9% 230 ML IV SCH (15:22)
[2022-05-19 17:00] VITALS: BP 123/75
[2022-05-19 22:00] VITALS: BP 104/59
[2022-05-19] MEDS: ALBUTEROL SULF HFA 90MCG INH 200DOSE IN PRN (23:00)
[2022-05-20 05:00] VITALS: BP 108/69
[2022-05-20 05:30] LABS: Albumin 2.8 g/dL (3.4-5.0); Potassium 4.3 mmol/L (3.5-5.1)
[2022-05-20 05:34] LABS: BUN/Creatinine Ratio 22.5; Bilirubin, Total 0.5 mg/dL (0.2-1.0); Total Protein 6.4 g/dL (6.4-8.2)
[2022-05-20] MEDS: InsuLIN REG 1unit/0.01ml Soln (100units/ml) SC SCH ×3 (06:14→17:00)
[2022-05-20] MEDS: ACCU-CHEK COMFORT CURVE STRIP VI SCH ×3 (06:19→17:00)
[2022-05-20 09:02] VITALS: BP 130/79
[2022-05-20] MEDS: BUDESONIDE (INHALATION) 180 MCG IH IN SCH (10:00)
[2022-05-20] MEDS: DexAMETHasone SOD PHOS 10MG/1ML VIAL INJ IV SCH (10:35)
[2022-05-20] MEDS ORDERED: guaiFENesin 200 MG/10 ML UD PO PRN (11:45)
[2022-05-20 11:46] VITALS: BP 125/85
[2022-05-20] MEDS ORDERED: GUAI-41 PO (11:49)
[2022-05-20 12:41] VITALS: BP 131/80
[2022-05-20] MEDS: REMDESIVIR 100mg 100 MG in SODIUM CHL 0.9% 230 ML IV SCH (15:00)
[2022-05-20 17:11] VITALS: BP 138/79
== END 2022-05-20 17:20 | disposition home or self-care (01) | DRG 137 ==
LOC: ER 09:41 → TELE 13:43 → CENTRAL 22:00 → TELE-CENTR 22:01
PROVIDERS: ADMIT Registered Nurse; ATTEND Internal Medicine
PROC: XW033E5 Introduction of Remdesivir Anti-infective into Peripheral Vein, Percutaneous Approach, New Technology Group 5 (ICD-10-PCS; principal; 2022-05-17)
DX: U07.1 COVID-19 (principal); J96.01 Acute respiratory failure with hypoxia; J12.82 Pneumonia due to coronavirus disease 2019; E46 Unspecified protein-calorie malnutrition; D69.6 Thrombocytopenia, unspecified; I47.1 Supraventricular tachycardia; I50.9 Heart failure, unspecified; I11.0 Hypertensive heart disease with heart failure; R94.31 Abnormal electrocardiogram [ECG] [EKG]; E11.9 Type 2 diabetes mellitus without complications; E66.01 Morbid (severe) obesity due to excess calories; J45.909 Unspecified asthma, uncomplicated; Z28.310 Unvaccinated for COVID-19; Z68.41 Body mass index [BMI] 40.0-44.9, adult; Z88.0 Allergy status to penicillin
CPT/HCPCS: 36415; 71045; 71275; 80053; 80061; 81001; 82306; 82728; 82962; 83036; 83605; 83615; 83735; 84443; 84484; 85025; 85379; 85610; 86141; 87040; 87426; 87804; 93005; 93306; 94640; 96361; 96365; 96375; 99291; G0378; J0696; J1100; J1815; J3490

== ENCOUNTER 2022-09-25 11:50 | Inpatient (IN) | payer MEDICAID ==
[~2022-09-25] VITALS: Ht 182.9 cm; Wt 130.0 kg
[~2022-09-25 11:50] MED LIST changes: +GUAI-41 PO; -SULF800T7 PO
[2022-09-25] MEDS ORDERED: FUROSEMIDE 40 MG/4 ML VIAL IV ONE (12:30)
[2022-09-25 13:06] LABS: Basophils # (auto) 0 10 ^3/uL (0-0.2); Basophils % (auto) 0.3 % (0.0-2.0); Eosinophils # (auto) 0.2 10 ^3/uL (0-0.8); Eosinophils % (auto) 3.7 % (0.0-7.0); Hemoglobin 15.2 g/dL (13.5-17.5); Lymphocytes # (auto) 0.7 10 ^3/uL (0.4-5.4); Lymphocytes % (auto) 10.7 % (10.0-50.0); Mean Corpuscular Hemoglobin 32.1 pg (28.0-32.0); Mean Corpuscular Hgb Conc. 33.9 g/dL (32.0-36.0); Mean Corpuscular Volume 94.9 fL (80.0-100.0); Monocytes # (auto) 0.5 10 ^3/uL (0-1.3); Neutrophils # (auto) 5.1 10 ^3/uL (1.6-8.6); Neutrophils % (auto) 78.3 % (37.0-80.0); Nucleated Red Blood Cells % 0.1 %; Red Blood Cells 4.74 10^6/uL (4.5-5.90); Red Cell Distribution Width 13.4 % (11.8-14.3); White Blood Cell 6.5 10^3/uL (4.4-10.8)
[2022-09-25 13:17] LABS: Albumin 3.2 g/dL (3.4-5.0); Calcium 8.3 mg/dL (8.5-10.1); Potassium 4.2 mmol/L (3.5-5.1)
[2022-09-25 13:21] LABS: BUN/Creatinine Ratio 12.9 (10.0-20.0); Bilirubin, Total 1.3 mg/dL (0.2-1.0); Total Protein 7.2 g/dL (6.4-8.2)
[2022-09-25] MEDS ORDERED: PANTOPRAZOLE 40 MG/10 ML VIAL INJ IV ONE (14:45)
[2022-09-25] MEDS ORDERED: MORPHINE SULFATE INJ 2 MG/ml SYRG IV PRN (14:45)
[2022-09-25] MEDS ORDERED: NITROGLYCERIN 0.4 MG SL TAB SL PRN (14:45)
[2022-09-25] MEDS ORDERED: DEXTROSE (50%) 50ML SYRG IV PRN (14:45)
[2022-09-25] MEDS ORDERED: ALBUTEROL SULF 2.5 MG/0.5ML(0.5%) NEB SOLN NEB PRN (14:45)
[2022-09-25 15:31] LABS: Cholesterol 155 mg/dL (< 200); HDL Cholesterol 42 mg/dL (40-59); LDL Cholesterol 97 mg/dL (< 100); Triglycerides 163 mg/dL (< 150)
[2022-09-25] MEDS: InsuLIN REG 1unit/0.01ml Soln (100units/ml) SC SCH ×2 (17:00→23:23)
[2022-09-25] MEDS: ACCU-CHEK COMFORT CURVE STRIP VI SCH ×2 (18:25→23:22)
[2022-09-25] MEDS: METOPROLOL TARTRATE 50 MG TAB PO SCH (23:21)
[2022-09-25] MEDS: APIXABAN 5 MG TAB PO SCH (23:21)
[2022-09-25] MEDS: AMIODARONE HCL 200 MG TAB PO SCH (23:21)
[2022-09-26 05:33] LABS: Basophils # (auto) 0 10 ^3/uL (0-0.2); Basophils % (auto) 0.5 % (0.0-2.0); Eosinophils # (auto) 0.2 10 ^3/uL (0-0.8); Eosinophils % (auto) 4.2 % (0.0-7.0); Hematocrit 41.5 % (41.0-53.0); Hemoglobin 14.3 g/dL (13.5-17.5); Lymphocytes % (auto) 17.1 % (10.0-50.0); Mean Corpuscular Hemoglobin 32.5 pg (28.0-32.0); Mean Corpuscular Hgb Conc. 34.5 g/dL (32.0-36.0); Monocytes # (auto) 0.7 10 ^3/uL (0-1.3); Monocytes % (auto) 11.3 % (0.0-12.0); Neutrophils # (auto) 3.9 10 ^3/uL (1.6-8.6); Neutrophils % (auto) 66.9 % (37.0-80.0); Nucleated Red Blood Cells % 0.1 %; Red Blood Cells 4.41 10^6/uL (4.5-5.90); Red Cell Distribution Width 13.6 % (11.8-14.3); White Blood Cell 5.8 10^3/uL (4.4-10.8)
[2022-09-26] MEDS ORDERED: ACETAMINOPHEN 325 MG TAB PO PRN (07:00)
[2022-09-26] MEDS: ACCU-CHEK COMFORT CURVE STRIP VI SCH ×4 (07:00→22:03)
[2022-09-26 09:50] LABS: Urine Bacteria NONE SEEN /hpf (None Seen); Urine Blood Negative /uL (Negative); Urine Mucus FEW (None Seen); Urine Specific Gravity 1.024 (1.001-1.035); Urine WBC 1 /hpf (0 - 3)
[2022-09-26] MEDS ORDERED: FUROSEMIDE 20 MG/2 ML VIAL IV SCH (10:00)
[2022-09-26] MEDS ORDERED: ENOXAPARIN SOD 40 MG/0.4 ML SYRINGE SC SCH (10:00)
[2022-09-26] MEDS: AMIODARONE HCL 200 MG TAB PO SCH ×2 (10:20→22:01)
[2022-09-26] MEDS: APIXABAN 5 MG TAB PO SCH ×2 (10:20→22:02)
[2022-09-26] MEDS: METOPROLOL TARTRATE 50 MG TAB PO SCH ×2 (10:21→22:05)
[2022-09-26] MEDS: PANTOPRAZOLE 40 MG/10 ML VIAL INJ IV SCH (10:22)
[2022-09-26] MEDS: InsuLIN REG 1unit/0.01ml Soln (100units/ml) SC SCH ×4 (10:32→22:00)
[2022-09-26 13:42] VITALS: BP 106/70
[2022-09-26 16:20] LABS: Amphetamine Screen, Urine NEGATIVE (NEGATIVE); Barbiturate Scree,Urine NEGATIVE (NEGATIVE); Benzodiazephine Screen, Urine NEGATIVE (NEGATIVE); Cannabinoid Screen, Urine NEGATIVE (NEGATIVE); Cocaine Screen, Urine NEGATIVE (NEGATIVE); Opiate Scree,Urine NEGATIVE (NEGATIVE); Phencyclidine Screen, Urine NEGATIVE (NEGATIVE)
[2022-09-26 16:49] VITALS: BP 101/68
[2022-09-26 19:00] VITALS: BP 115/70
[2022-09-26] MEDS: FUROSEMIDE 20 MG/2 ML VIAL IV SCH (19:32)
[2022-09-26 22:00] VITALS: BP 115/70
[2022-09-26] MEDS ORDERED: MONTELUKAST SODIUM 10 MG TAB PO SCH (22:00)
[2022-09-26] MEDS: POTASSIUM CHL 10 Meq TABLET PO SCH (22:02)
[2022-09-26] MEDS: ALBUTEROL SULF 2.5 MG/0.5ML(0.5%) NEB SOLN NEB SCH (22:55)
[2022-09-26] MEDS: IPRATROPIUM BROM 0.5 MG/2.5ML INH SOL NEB SCH (22:55)
[2022-09-27 05:00] VITALS: BP 109/72
[2022-09-27] MEDS: FUROSEMIDE 20 MG/2 ML VIAL IV SCH ×2 (06:01→18:47)
[2022-09-27] MEDS: InsuLIN REG 1unit/0.01ml Soln (100units/ml) SC SCH ×3 (06:12→17:00)
[2022-09-27] MEDS: ACCU-CHEK COMFORT CURVE STRIP VI SCH ×3 (06:12→17:00)
[2022-09-27] MEDS: ALBUTEROL SULF 2.5 MG/0.5ML(0.5%) NEB SOLN NEB SCH ×2 (06:47→13:43)
[2022-09-27] MEDS: IPRATROPIUM BROM 0.5 MG/2.5ML INH SOL NEB SCH ×2 (06:47→13:43)
[2022-09-27 07:13] LABS: BUN/Creatinine Ratio 21.5 (10.0-20.0); Calcium 8.7 mg/dL (8.5-10.1); Potassium 3.9 mmol/L (3.5-5.1)
[2022-09-27 11:47] VITALS: BP 118/68
[2022-09-27] MEDS: METOPROLOL TARTRATE 50 MG TAB PO SCH (11:57)
[2022-09-27] MEDS: POTASSIUM CHL 10 Meq TABLET PO SCH (11:57)
[2022-09-27] MEDS: APIXABAN 5 MG TAB PO SCH (11:58)
[2022-09-27] MEDS: AMIODARONE HCL 200 MG TAB PO SCH (11:59)
[2022-09-27] MEDS: PANTOPRAZOLE 40 MG/10 ML VIAL INJ IV SCH (11:59)
[2022-09-27] MEDS ORDERED: MET50T PO (13:43)
[2022-09-27] MEDS ORDERED: BUDE20SU (13:43)
[2022-09-27] MEDS ORDERED: APIX5TAB PO (13:43)
[2022-09-27] MEDS ORDERED: AMIO200T4 PO (13:43)
[2022-09-27] MEDS ORDERED: SPIR25TA PO (13:43)
[2022-09-27] MEDS ORDERED: GUAI-41 PO (13:43)
[2022-09-27] MEDS ORDERED: ALBU108A5 IN (13:43)
[2022-09-27 16:24] VITALS: BP 132/75
[2022-09-27 17:00] VITALS: BP 115/71
== END 2022-09-27 19:05 | disposition home or self-care (01) | DRG 194 ==
LOC: ER 11:50 → TELE 14:39 → TELE-WESTW 09-26 11:59
PROVIDERS: ADMIT Nurse Practitioner Family; ATTEND Hospitalist
DX: I11.0 Hypertensive heart disease with heart failure (principal); J96.01 Acute respiratory failure with hypoxia; Z20.822 Contact with and (suspected) exposure to COVID-19; I50.43 Acute on chronic combined systolic (congestive) and diastolic (congestive) heart failure; I47.1 Supraventricular tachycardia; E83.51 Hypocalcemia; I48.0 Paroxysmal atrial fibrillation; E11.9 Type 2 diabetes mellitus without complications; E66.01 Morbid (severe) obesity due to excess calories; J45.909 Unspecified asthma, uncomplicated; Z88.0 Allergy status to penicillin; Z86.16 Personal history of COVID-19; Z79.899 Other long term (current) drug therapy; Z68.38 Body mass index [BMI] 38.0-38.9, adult
CPT/HCPCS: 36415; 71045; 80048; 80053; 80061; 80307; 81001; 82962; 83036; 83880; 84443; 84484; 85025; 85379; 87426; 93005; 93306; 94640; C9113; G0378; J1815